=== PATIENT | male | born 1985 | race Caucasian/White ===

== ENCOUNTER 2021-06-20 18:09 | Emergency (ER) | payer BC, SELFPAY | END 2021-06-20 19:59 | disposition left against medical advice (07) | PROVIDERS: Emergency Provider Emergency Medicine; PCP Nurse Practitioner Family | DX: R11.2 Nausea with vomiting, unspecified (principal) ==

== ENCOUNTER 2024-04-17 07:35 | Emergency (ER) | payer OTHER, SELFPAY ==
--- NOTE | ~2024-04-17 | CT_ITS ---
EXAMINATION: CT SHOULDER WITHOUT CONTRAST, LEFT CLINICAL INFORMATION: Hyperextension. Unable to abduct. Pain. COMPARISON: Left shoulder radiographs dated 04/17/2024. TECHNIQUE: Contiguous axial CT images of the left shoulder were obtained without contrast. Multiplanar reformats were provided and reviewed. This CT examination was performed using dose optimization techniques as appropriate, variously including the following: *Automated exposure control *Adjustment of mA and/or kV according to patient size (this includes techniques or standardized protocols for targeted exams where dose is matched to indication/reason for exam; i.e. extremities or head) *Use of iterative reconstruction technique. DOSE: 530 mGy-cm FINDINGS: Mildly displaced fracture along the anteroinferior aspect of the glenoid with the fracture fragment measuring up to 2.2 x 1.0 x 1.0 cm (CC x AP x ML). The fracture contacts the periphery of the glenoid articular surface with the largest fracture gap anteriorly measuring up to 0.4 cm. 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 No significant cortical depression or large Hill-Sachs deformity identified. The bony Bankart lesion indicates possible prior anteroinferior humeral head dislocation. Humeral head currently well seated within the glenoid. No joint space narrowing or marginal osteophytes. No concerning lytic or blastic osseous lesion. Moderate glenohumeral joint effusion. No soft tissue mass or fluid collection. No axillary lymphadenopathy. The visualized left lung is clear. Grossly intact rotator cuff tendons; however, evaluation is significantly limited on CT examination. CT/CT shoulder LT wo IV con IMPRESSION: 1. Mildly displaced fracture along the anteroinferior aspect of the glenoid with the fracture fragment measuring up to 2.2 cm. The fracture contacts the periphery of the glenoid articular surface with the largest fracture gap measuring up to 0.4 cm. 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 No significant cortical depression or large Hill-Sachs deformity identified. This likely indicates prior anteroinferior humeral head dislocation. Humeral head currently well seated within the glenoid. 2. Moderate glenohumeral joint effusion.
--- NOTE | ~2024-04-17 | XR_ITS ---
EXAMINATION: XR SHOULDER, LEFT CLINICAL INFORMATION: Fall onto outstretched shoulder COMPARISON: None available. TECHNIQUE: Four views of the left shoulder. FINDINGS: The bones and soft tissues are normal. No fracture. Glenohumeral and acromioclavicular alignment is anatomic with normal joint space. No abnormal soft tissue calcifications. XR/XR shoulder LT min 2V IMPRESSION: Normal left shoulder.
[2024-04-17 07:39] VITALS: BP 141/84; PULSE 69; RESP 16; TEMP 36.2; O2SAT 98; BMI 28.0
--- NOTE | 2024-04-17 07:48 | ED.EXTPRO ---
HPI - Extremity Problem General Chief complaint: Extremity Injury, Upper Stated complaint: l shoulder pain Time Seen by Provider: 04/17/24 07:48 Source: patient Mode of arrival: ambulatory Limitations: no limitations History of Present Illness ED Provider: TATE YOUNG PA-C HPI Narrative: 38-year-old male with past medical history significant for anxiety presents to the emergency department today for evaluation of left shoulder pain since yesterday. Patient reports that while playing baseball yesterday, he dove for the ball with his left arm outstretched, causing it to hyperextend on landing. Reports hearing a weird sound . Denies head strike or LOC. Not on anticoagulation. Since this time he has been unable to lift his left arm secondary to pain. Denies pain when arm is at rest. He has been using heat at home without relief. Also took Tylenol last night with minimal relief. Denies numbness/tingling/weakness of the LUE, fever/chills. Related Data Previous Rx's ?Medication ?Instructions ?Recorded ondansetron HCl 8 mg tablet 8 mg PO Q12H PRN nausea and 04/18/23 vomiting #14 tabs sumatriptan succinate 50 mg tablet 50 mg PO Q2-4H PRN migraine 04/18/23 headache #20 tabs citalopram 20 mg tablet 20 mg PO DAILY #90 tabs 09/29/23 lidocaine 5 % topical patch 1 patch topical DAILY #15 ea 04/17/24 (Lidoderm) naproxen 500 mg tablet 500 mg PO Q8-12H PRN pain (scale 04/17/24 score 1-3) #20 tabs Allergies Allergy/AdvReac Type Severity Reaction Status Date / Time No Known Allergies Allergy Verified 04/17/24 07:41 Review of Systems Review of Systems: Constitutional: No fever, chills, fatigue, night sweats, weight changes ENT/Mouth: No ear pain, hearing loss, nasal congestion, sinus pain, rhinorrhea, sore throat Eyes: No eye pain, swelling, redness, vision changes, discharge Cardio: No chest pain, palpitations, LAMAS, orthopnea, peripheral edema Pulm: No SOB, cough, sputum, wheezing, dyspnea, hemoptysis GI: No nausea, vomiting, hematemesis, abdominal pain, diarrhea, constipation, hematochezia, melena : No irregular bleeding, dysuria, frequency, urgency, hesitancy, hematuria, flank pain, urinary flow changes, urinary incontinence or retention MSK: No back pain, neck pain, joint pain, myalgias, +left shoulder pain Skin: No lesions, rashes Neuro: No weakness, numbness, paresthesias, LOC, dizziness, headache Psych: No anxiety/panic, depression, SI/HI, AH/VH All other systems reviewed and are negative. [facility] Past Medical History Attestation statement: The following information was validated with the patient. Source: old records reviewed and nursing notes reviewed Medical History Anxiety Family History Family History Mother Mental health disorder Social History Social History Housing: House Patient Tobacco Use Status: Never used Tobacco e-Cigarette/Vaping Use: Currently Using service: No Current occupational status: employed Cognitive needs: No Hearing needs: No Vision needs: Yes Physical Exam Vital Signs: Vital Signs: Last Vital Signs Temp 97.2 F 04/17/24 07:39 Pulse 69 04/17/24 07:39 Resp 16 04/17/24 07:39 BP 141/84 H 04/17/24 07:39 Pulse Ox 98 04/17/24 07:39 O2 Del Method Room Air 04/17/24 07:39 BMI result Body Mass Index 28.0 Patient hypertensive, vitals otherwise WNL Const: General: cooperative, healthy appearing, comfortable and no acute distress Orientation/consciousness: patient oriented x3 Limitations: no limitations HEENT: Head: Yes normal to inspection, Yes No palpable skull fracture present, Yes normocephalic and Yes atraumatic Eyes: General: appearance normal, both eyes and all related structures Pupils: Equal, round and reactive pupils present Neck: Neck: Yes normal visual inspection Chest: Chest palpation & inspection: normal inspection of the chest Resp: Effort & Inspection: normal respiratory effort and able to speak in complete sentences Cardio: Rate: regular rate Rhythm: regular rhythm Back/Spine/Pelvis: Other: No midline spinous tenderness or step off deformity. No paraspinal muscle tenderness. Skin: General skin exam: no rashes or lesions noted Neuro: Other: Sensation intact to light touch.? Neurovascular intact distally.? General: patient oriented x3 Cranial nerves: Yes Equal, round and reactive pupils present Extrem: Other: + left shoulder without noted deformity or overlying skin changes. limited ROM with abduction. pain elicited with abduction against resistance. No tenderness to palpation of the left shoulder. No palpable deformity, warmth, crepitus, fluctuance. Winch Derrick Operator strength intact. 2+ radial/ulnar pulse intact. Course Course Course Narrative: 1117-- x-ray left shoulder unremarkable. No acute fracture noted. High suspicion for traumatic injury so CT scan was obtained. CT left shoulder showing mildly displaced fracture along anterior inferior aspect of the glenoid with the fracture fragment measuring up to 2.2 cm, contacting the periphery of the glenoid articular surface with the largest fracture gap measuring up to 0.4 cm. 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 There is no significant cortical depression or large Hill-Sachs deformity identified. This may indicate prior and heroin inferior humeral head dislocation however humeral head is currently well seated within the glenoid. There is also moderate glenohumeral joint effusion. > findings are consistent with traumatic fracture likely secondary to rotator cuff injury. I did discuss these findings with patient. Patient placed in sling for immobilization. Will send naproxen and lidocaine patches to pharmacy. He tells me that his has already made him in an appointment with orthopedics outpatient for tomorrow. I advised him to keep this appointment for follow-up. Patient has remained stable throughout ED visit today. Discussed worrisome signs and symptoms and when to return to the ED. All questions answered at this time. Patient is agreeable with disposition and stable for discharge. Medical Decision Making Medical Decision Making [facility] Narrative: 38-year-old male with past medical history significant for anxiety presents to the emergency department today for evaluation of left shoulder pain since yesterday. Patient is slightly hypertensive, vitals otherwise WNL. On exam of LUE, left shoulder without noted deformity or overlying skin changes. limited ROM with abduction. pain elicited with abduction against resistance. No tenderness to palpation of the left shoulder. No palpable deformity, warmth, crepitus, fluctuance. Winch Derrick Operator strength intact. 2+ radial/ulnar pulse intact. Differential diagnosis includes rotator cuff injury, msk sprain/ strain, fracture. lower suspicion for dislocation. Unlikely neurovascular compromise, compartment syndrome, threat to limb. Plan for x-ray, pain control, re-evaluation. Differential Diagnosis Differential Diagnoses: The differential diagnosis associated with the presentation includes as above Admission/Observation Not indicated. Independent Interpretation I performed an independent interpretation of an: Plain X-Ray and CT Scan Interpretation: XR left shoulder without acute fracture, agree with radiologist's interpretation. CT left shoulder showing glenoid fracture, agree with radiologist's interpretation. Radiology Impression Discussion of test interpretation with radiology: I have reviewed the radiologist's reading. Radiologist Impression: EXAMINATION: XR SHOULDER, LEFT CLINICAL INFORMATION: Fall onto outstretched shoulder COMPARISON: None available. TECHNIQUE: Four views of the left shoulder. FINDINGS: The bones and soft tissues are normal. No fracture. Glenohumeral and acromioclavicular alignment is anatomic with normal joint space. No abnormal soft tissue calcifications. XR/XR shoulder LT min 2V IMPRESSION: Normal left shoulder. EXAMINATION: CT SHOULDER WITHOUT CONTRAST, LEFT CLINICAL INFORMATION: Hyperextension. Unable to abduct. Pain. COMPARISON: Left shoulder radiographs dated 04/17/2024. TECHNIQUE: Contiguous axial CT images of the left shoulder were obtained without contrast. Multiplanar reformats were provided and reviewed. This CT examination was performed using dose optimization techniques as appropriate, variously including the following: *Automated exposure control *Adjustment of mA and/or kV according to patient size (this includes techniques or standardized protocols for targeted exams where dose is matched to indication/reason for exam; i.e. extremities or head) *Use of iterative reconstruction technique. DOSE: 530 mGy-cm FINDINGS: Mildly displaced fracture along the anteroinferior aspect of the glenoid with the fracture fragment measuring up to 2.2 x 1.0 x 1.0 cm (CC x AP x ML). The fracture contacts the periphery of the glenoid articular surface with the largest fracture gap anteriorly measuring up to 0.4 cm. 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 No significant cortical depression or large Hill-Sachs deformity identified. The bony Bankart lesion indicates possible prior anteroinferior humeral head dislocation. Humeral head currently well seated within the glenoid. No joint space narrowing or marginal osteophytes. No concerning lytic or blastic osseous lesion. Moderate glenohumeral joint effusion. No soft tissue mass or fluid collection. No axillary lymphadenopathy. The visualized left lung is clear. Grossly intact rotator cuff tendons; however, evaluation is significantly limited on CT examination. CT/CT shoulder LT wo IV con IMPRESSION: 1. Mildly displaced fracture along the anteroinferior aspect of the glenoid with the fracture fragment measuring up to 2.2 cm. The fracture contacts the periphery of the glenoid articular surface with the largest fracture gap measuring up to 0.4 cm. 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 No significant cortical depression or large Hill-Sachs deformity identified. This likely indicates prior anteroinferior humeral head dislocation. Humeral head currently well seated within the glenoid. 2. Moderate glenohumeral joint effusion. External Record Review External record reviewed: Inpatient record Prescription Management I considered prescription management with: Pain Medication (Naproxen) and Other (Lidocaine patch) Social Determinants Patient?s care significantly limited by Social Determinants of Health including: Other Social Determinant of Health Procedures Orthopedic Splinting/Casting Injury #1: Side: left Upper Extremity Injury Location: shoulder Upper Extremity Immobilizer: sling/shoulder immobilizer Critical Care Time Critical Care Time Critical Care Time: No Discharge Plan Discharge Clinical Impression: Injury of left rotator cuff Glenoid fracture of shoulder Qualifiers: Encounter type: initial encounter Fracture type: closed Laterality: left Qualified Code(s): S42.142A - Displaced fracture of glenoid cavity of scapula, left shoulder, initial encounter for closed fracture Patient Disposition: Home, Self-Care Instructions: Muscle Strain (ED), Rotator Cuff Injury (ED), How to Use a Sling (ED), Rotator Cuff Injury Exercises (DC) Additional Instructions: The xray of your left shoulder is normal. As discussed, the CT scan of your left shoulder shows: CT shoulder LT wo IV con IMPRESSION: 1. Mildly displaced fracture along the anteroinferior aspect of the glenoid with the fracture fragment measuring up to 2.2 cm. The fracture contacts the periphery of the glenoid articular surface with the largest fracture gap measuring up to 0.4 cm. 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 No significant cortical depression or large Hill-Sachs deformity identified. This likely indicates prior anteroinferior humeral head dislocation. Humeral head currently well seated within the glenoid. 2. Moderate glenohumeral joint effusion. You were provided with a shoulder sling to help immobilize the shoulder. Please follow up with orthopedics outpatient this week. You have been provided with their contact information. Please call them to make an appointment. They will not call you. Naproxen as an anti-inflammatory that has been sent to your pharmacy for you to take for pain/discomfort. Do not take this with other NSAIDs such as ibuprofen as this may cause increased risk of GI bleeding. Lidocaine patches have been sent to your pharmacy. You may apply these to painful areas. Return with new or worsening symptoms. In the case of an emergency call 911. [facility] [phone] [place] [address], [address] [place] [address] Prescriptions: New naproxen 500 mg tablet 500 mg PO Q8-12H PRN (Reason: pain (scale score 1-3)) Qty: 20 0RF lidocaine [Lidoderm] 5 % adhesive patch,medicated 1 patch topical DAILY Qty: 15 0RF Rx Instructions: leave on most painful area for up to 12 hrs No Action sumatriptan succinate 50 mg tablet 50 mg PO Q2-4H PRN (Reason: migraine headache) Qty: 20 0RF Rx Instructions: do not exceed 4 doses per 24 hrs ondansetron HCl 8 mg tablet 8 mg PO Q12H PRN (Reason: nausea and vomiting) Qty: 14 0RF citalopram 20 mg tablet 20 mg PO DAILY Qty: 90 2RF Referrals: [facility] [Provider Group] Alessandro De Luna, MEDICAL PHYSIOLOGIST-BC [Primary Care Provider] - Stand Alone Forms: Work/School Release Print Language: Welsh
[2024-04-17 11:25] VITALS: BP 125/79; PULSE 60; RESP 20; TEMP 36.2; O2SAT 98
== END 2024-04-17 11:29 | disposition home or self-care (01) ==
PROVIDERS: Emergency Provider Emergency Medicine; PCP Nurse Practitioner Family
DX: S42.142A Displaced fracture of glenoid cavity of scapula, left shoulder, initial encounter for closed fracture (principal); M79.602 Pain in left arm; X58.XXXA Exposure to other specified factors, initial encounter; Y93.64 Activity, baseball; Y92.320 Baseball field as the place of occurrence of the external cause; Y99.8 Other external cause status
CPT/HCPCS: 29105; 73030; 73200; 99282; 99283; 99284

== ENCOUNTER 2024-04-18 08:23 | Outpatient (AMB) | payer OTHER, SELFPAY ==
[2024-04-18 08:27] VITALS: BMI 28.0
--- NOTE | 2024-04-18 08:27 | MHC.OFFVIS ---
Vital Signs 04/18/24 08:27 Height 6 ft 5 in Weight 236 lb BMI 28.0 Intake Visit Reasons: ED follow up, [facility]ar shealdr inj DOI 04/16/24 Intake Note: Boubacar is a 38 year old right and dominant male who presents today for an ED follow up after sustaining an injury to the left shoulder DOI 04/16/24. Patient reports that while playing baseball yesterday, he dove for the ball with his left arm outstretched, causing it to hyperextend on landing. Reports hearing a tearing sound.Currently he complains of soreness all the time, worsened at night. Pain is felt in the posterioraspect of the shoulder with shooting pain down the arm. Denies numbness and tingling. He takes Tylenol with little relief. Allergies No Known Allergies Allergy (Verified 04/17/24 07:41) Medication List - Last Reconciled 04/18/24 by Juvenal Conde PA-C citalopram 20 mg PO DAILY lidocaine 5% (Lidoderm) 1 patch topical DAILY naproxen 500 mg PO Q8-12H PRN HPI HPI ED follow up, [facility]ar shealdr inj DOI 04/16/24: Details: 38-year-old right hand dominant male who presents to the office today for an ED follow-up of left shoulder injury, 04/16/24. He reports he was playing basketball yesterday and dove for the ball with his left arm outstretched causing it to hyperextend on landing with a tearing sound. He currently states he has constant soreness and pain at the posterior aspect of his shoulder with a shooting pain down the arm. He denies any numbness or tingling. He finds mild relief with Tylenol. He wears a sling however this causes him discomfort. [facility] Medical History Anxiety Family History Mother Mental health disorder Social History Housing: House Patient Tobacco Use Status: Never used Tobacco e-Cigarette/Vaping Use: Currently Using service: No Current occupational status: employed Cognitive needs: No Hearing needs: No Vision needs: Yes Review of Systems Const All systems reviewed & are unremarkable except as noted in HPI and below Physical Exam Vital Signs: BMI result Body Mass Index 28.0 Const General: cooperative, healthy appearing, comfortable, no acute distress, well developed and alert Orientation/consciousness: patient oriented x3 HEENT Head: Yes normal to inspection, Yes normocephalic and Yes atraumatic Eyes General: appearance normal, both eyes and all related structures Resp Effort & Inspection: normal respiratory effort and able to speak in complete sentences Cardio Rate: regular rate Peripheral pulses: Peripheral pulses 2+ throughout GI Palpation (GI): Soft to palpation Skin Lesions: no lesions Rashes: no rashes Neuro General: patient oriented x3 Extrem Other: Left shoulder: Normal to inspection. Tenderness over the bicipital groove and along the deltoid region of the shoulder. Forward flexion to 175, external rotation to 90, internal rotation to S1. 5/5 RTC strength. Negative Basurto and cross body abduction. NVI. Results Reviewed Results Reviewed: XR shoulder LT min 2V 04/17/24 IMPRESSION: Normal left shoulder. CT shoulder LT wo IV con 04/17/24 IMPRESSION: 1. Mildly displaced fracture along the anteroinferior aspect of the glenoid with the fracture fragment measuring up to 2.2 cm. The fracture contacts the periphery of the glenoid articular surface with the largest fracture gap measuring up to 0.4 cm. 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 No significant cortical depression or large Hill-Sachs deformity identified. This likely indicates prior anteroinferior humeral head dislocation. Humeral head currently well seated within the glenoid. 2. Moderate glenohumeral joint effusion. Assessment & Plan Assessment & Plan (1) Bankart lesion of left shoulder: Code(s): S43.492A - Other sprain of left shoulder joint, initial encounter Category: Medical Plan Patient will continue with the sling for comfort. He will remove the sling for ROM of elbow, pendulum exercises and I explained he can perform activities , but nothing behind the coronal plane of his body. He will avoid any type of lifting, pushing, pulling, or carrying on his LUE. I would like to see him back in 2 weeks for a follow-up visit to further evaluate the extent of his injury to determine if he would require any other imaging or potentially discuss surgical intervention given the likelihood of instability on his shoulder. He will remain out of work untill his follow-up appointment in [address] Gonzales. Patient Instructions: Scribed for Juvenal Conde PA-C, by Dimas Crystal medical administrative assistant, on 04/18/2024 at 8:30 AM EST.? I, Juvenal Conde PA-C, have personally reviewed and agree with the information entered by the scribe. Coding Level of Care Code New Pt Level 3 (87273) Diagnoses Bankart lesion of left shoulder S43.492A
== END 2024-04-18 09:23 | disposition home or self-care (01) ==
PROVIDERS: PCP Nurse Practitioner Family; Visit Provider Physician Assistant
DX: S43.492A Other sprain of left shoulder joint, initial encounter (principal)
CPT/HCPCS: 99203

== ENCOUNTER → 2024-04-18 08:23 | Outpatient (BNVA) | payer OTHER, SELFPAY | PROVIDERS: PCP Nurse Practitioner Family; Visit Provider Physician Assistant ==

== ENCOUNTER 2024-05-04 10:22 | Outpatient (AMB) | payer OTHER, SELFPAY ==
--- NOTE | 2024-05-04 10:38 | A.OFFVIS_ITS ---
Intake Visit Reasons: ov- L shldr inj DOI 04/16/24 Intake Note: Boubacar is a 38 year old right and dominant male who presents today for a follow up after sustaining an injury to the left shoulder, DOI 04/16/24. Patient reports improvement in his pain and ROM. States having discomfort with some arm movements. Allergies No Known Allergies Allergy (Verified 05/04/24 10:44) Medication List - Last Reconciled 05/08/24 by Juvenal Conde PA-C citalopram 20 mg PO DAILY lidocaine 5% (Lidoderm) 1 patch topical DAILY naproxen 500 mg PO Q8-12H PRN HPI HPI ov- L shldr inj DOI 04/16/24: Details: Cedric is a 38-year-old right-hand dominant male who presents today for a follow-up after sustaining an injury to the left shoulder, DOI 04/16/24. He reports significant improvement in his pain and ROM. He notices certain movements caused him discomfort such as ?reaching behind his back.? He reports difficulty in lifting items secondary to pain. [facility] Medical History Anxiety Family History Mother Mental health disorder Social History Housing: House Patient Tobacco Use Status: Never used Tobacco e-Cigarette/Vaping Use: Currently Using service: No Current occupational status: employed Cognitive needs: No Hearing needs: No Vision needs: Yes Review of Systems Const All systems reviewed & are unremarkable except as noted in HPI and below Physical Exam Const General: cooperative, healthy appearing, comfortable and no acute distress Orientation/consciousness: patient oriented x3 HEENT Head: Yes normal to inspection, Yes normocephalic and Yes atraumatic Eyes General: appearance normal, both eyes and all related structures Neck Neck: Yes normal visual inspection and Yes no JVD Chest Chest palpation & inspection: normal inspection of the chest Resp Effort & Inspection: normal respiratory effort Auscultation: clear to auscultation bilaterally, crackles (no), rales (no), rhonchi (no) and wheezes (no) Cardio Jugular venous distension: no JVD Rate: regular rate Rhythm: regular rhythm Heart sounds: S1 normal heart sound present, S2 normal heart sound present, Murmur heart sound present (no) and Rub heart sound present (no) Peripheral pulses: Peripheral pulses 2+ throughout GI Palpation (GI): Soft to palpation Skin Lesions: no lesions Rashes: no rashes Neuro General: patient oriented x3 Extrem Other: Left shoulder: Normal to inspection. Tenderness over the bicipital groove and along the deltoid region of the shoulder. Forward flexion to 175, external rotation to 90, internal rotation to S1. He has mild discomfort with apprehension test. NVI. General: Yes normal to inspection, Yes no pedal edema and Yes no calf tenderness Psych Appearance: grossly normal Mental Status: mental status grossly normal Speech and movement: Normal speech and movement present Assessment & Plan Assessment & Plan (1) Bankart lesion of left shoulder: Code(s): S43.492A - Other sprain of left shoulder joint, initial encounter Category: Medical Plan I discussed the case with Dr. Gonzales in the office today. At this time, we will proceed with physical therapy of his left shoulder to work on stabilization and rotator cuff strengthening. Given his findings on his CT scan it is questionable whether or not he will develop chronic sensation of instability. Therefore, I will see him back in 6 to 8 weeks for reassessment and if he continues to do well, we can hopefully advances activities. However, if he develops recurrent sensations of instability, we may need to discuss possible surgical intervention. He was given a work note to return on May 08. Advised him to no lifting, pushing, pulling or carrying greater than 5 to 10 pounds and he will see me back in 6 to 8 weeks or sooner if needed. Orders: Orders PT Evaluation and Treatment 05/04/24 S43.492A - Other sprain of left shoulder joint, initial encounter Patient Instructions: Scribed for Juvenal Conde PA-C, by manasa Abad scribe, on 05/04/2024 at 10:30 AM ARNULFO. Juvenal Beckman PA-C, have personally reviewed and agree with the information entered by the scribe. Coding Level of Care Code Global (75473) Diagnoses Bankart lesion of left shoulder S43.492A
== END 2024-05-04 11:08 | disposition home or self-care (01) ==
PROVIDERS: PCP Nurse Practitioner Family; Visit Provider Physician Assistant
DX: S43.492A Other sprain of left shoulder joint, initial encounter (principal)
CPT/HCPCS: 99213

== ENCOUNTER → 2024-05-04 10:22 | Outpatient (BNVA) | payer OTHER, SELFPAY | PROVIDERS: PCP Nurse Practitioner Family; Visit Provider Physician Assistant ==

== ENCOUNTER 2025-03-01 10:52 | Outpatient (AMB) | payer OTHER, SELFPAY ==
[2025-03-01 10:53] VITALS: BP 122/70; PULSE 68; RESP 14; TEMP 36.7; O2SAT 97; BMI 28.2
--- NOTE | 2025-03-01 10:53 | A.OFFPC_ITS ---
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 Accompanied by: Self / Same As Patient Allergies No Known Allergies Allergy (Verified 03/01/25 10:53) Medication List - Last Reconciled 03/01/25 by ERNIE Moser citalopram 20 mg PO DAILY Tobacco use date assessed: 03/01/25 Dental Screening Dental Screen Date: 03/01/25 Did you have a dental visit in the last 12 months?: Yes Did you have a dental problem in the last 6 months where you did not have access to dental care?: No Was dental information given to patient?: Patient has dentist HPI PE HPI Details History of Present Illness The patient is a 39-year-old male presenting with a primary reason for visit of a physical exam. He reports feeling slightly fatigued, though no specific onset or contributing factors were mentioned. Additionally, he notes experiencing snoring, but did not provide details regarding its onset or any associated symptoms. The patient is currently on citalopram and reports doing well with this medication. He denies experiencing any symptoms such as chest pain, shortness of breath, abdominal pain, blood in stool, constipation, diarrhea, urinary issues, or any suicidal or homicidal ideation. Health Maintenance - Discussion for a possible sleep study for snoring - Continuation of citalopram for mental health management Social History Review of Systems - Respiratory: Denies chest pain, shortn ess of breath - Gastrointestinal: Denies abdominal sammi n, blood in stool, constipation, diarrhea - Genitourinary: Denies urinary issues - Neurological/Psychiatric: Denies suici aleta ideation, homicidal ideation; Reports doing well on citalopram - General: Reports fatigue, snoring Physical Exam General: Cooperative, healthy appearing, comfortable, no acute distress and well developed Orientation: Patient oriented x3 Limitations: No limitations Head: Normal to inspection Ears: Hearing grossly normal bilaterally Nose: Normal external nose present Face and sinus: Normal facial exam Eyes: Appearance normal, both eyes and all related structures Neck: Normal visual inspection and Yes full ROM Respiratory: Normal respiratory effort and able to speak in complete sentences. Clear to auscultation bilaterally Cardiovascular: Regular rate and rhythm. Normal S1 and S2 GI: Normal to inspection. Soft to palpation and nontender Skin: No rashes or lesions noted Neuro: Patient oriented x3 Extremities: Normal to inspection Results Plan The patient reports fatigue and snoring. We will continue his citalopram, which he finds effective. For the snoring, a referral to the sleep medicine team for a potential sleep study will be arranged to explore possible sleep disorders. We will review laboratory results to investigate any contributing factors to his fatigue. Discussion Notes During the consultation, I discussed with the patient the management of his current symptoms. We agreed to continue the current citalopram regimen as he reports it is effective. I explained the potential need for a sleep study to better understand his snoring and any associated sleep disturbances. The patient was informed about the importance of reviewing laboratory results that could provide insights into his fatigue. We discussed the benefits of these investigations and the importance of continuing to monitor his symptoms. Patient Instructions - Continue taking citalopram as prescrib ed. - Follow up with the sleep medicine team for a possible sleep study. - Await further review of lab results to address fatigue. - Report any new or worsening symptoms p romptly. [facility] Medical History Anxiety Family History Mother Mental health disorder Social History Housing: House Alcohol intake: current Alcohol intake frequency: does not drink Patient Tobacco Use Status: Former Tobacco user Tobacco use type: Cigarette e-Cigarette/Vaping Use: Currently Using service: No Current occupational status: employed Cognitive needs: No Hearing needs: No Vision needs: Yes (rx glasses) Questionnaire PHQ-9 Over the last 2 weeks, how often have you been bothered by any of the following problems? 1. Little interest or pleasure in doing things: not at all 2. Feeling down, depressed, or hopeless: not at all 3. Trouble falling or staying asleep, or sleeping too much: not at all 4. Feeling tired or having little energy: not at all 5. Poor appetite or overeating: not at all 6. Feeling bad about yourself - or that you are a failure or have let yourself or your family down: not at all 7. Trouble concentrating on things, such as reading the newspaper or watching television: not at all 8. Moving or speaking so slowly that other people could have noticed. Or the opposite - being so fidgety or restless that you have been moving around a lot more than usual: not at all 9. Thoughts that you would be better off or of hurting yourself in some way: not at all Total score: 0 Depression Screening Interpretation: Negative Depression Screening Done: Yes 36887 - PHQ-9 Billing: Yes Source: Developed by Drs. Drew Mao, Jennie Woo, Keaton Rosales and colleagues, with an educational anna from [employer]. Thrive Questionnaire Date Thrive assessed: 03/01/25 I am a: Patient What is your living situation today?: I have a steady place to live Within the past 12 months, did the food you bought not last and you didn't have the money to get more?: Never true Within the past 12 months, did you worry whether your food would run out before you got money to buy more?: Never true Do you have trouble paying for medicines?: No Do you have trouble getting transportation to medical appointments?: No Do you have trouble paying your heating and electricity bill?: No Do you have trouble taking care of your child, family member or friend?: No Do you have trouble with day-to-day activities such as bathing, preparing meals, shopping, managing finances, etc.?: No Are you currently unemployed and looking for a job?: No Are you interested in more education?: No Please select the resources that you would like help with: None Currently or been in a relationship where the following occur: No concerns reported THRIVE Score: 0 AUDIT C Alcohol Use Questionnaire (AUDIT-C) 1. How often do you have a drink containing alcohol?: Never 3. How often do you have six or more drinks on one occasion?: Never Total Score: 0 KRISTA-7 AMB Questionnaire KRISTA-7 Date KRISTA - 7 assessed: 03/01/25 Feeling nervous, anxious, or on edge: 0 = Not at all Not being able to stop or control worryin = Not at all Worrying too much about different things: 0 = Not at all Trouble relaxin = Not at all Being so restless that it is hard to sit still: 0 = Not at all Becoming easily annoyed or irritable: 0 = Not at all Feeling afraid as if something awful might happen: 0 = Not at all Total KRISTA-7 score (0-4 normal; 5-9 mild; 10-14 moderate; 15-21 severe): 0 Source: Developed by Drs. Drew Mao, Jennie Woo, Keaton Rosales and colleagues, with an educational anna from [employer]. Physical exam (Primary Care) Vital Signs: Last Vital Signs Temp 98.1 F 03/01/25 10:53 Pulse 68 03/01/25 10:53 Resp 14 03/01/25 10:53 BP 122/70 03/01/25 10:53 Pulse Ox 97 03/01/25 10:53 Oxygen Delivery Method Room Air 03/01/25 10:53 BMI result Body Mass Index 28.2 Tobacco/Smoking Status: Tobacco use Status Tobacco use date assessed 03/01/25 03/01/25 11:00 Patient Tobacco Use Status Former Tobacco user 03/01/25 11:00 Tobacco use type Cigarette 03/01/25 11:00 e-Cigarette/Vaping Use Currently Using 03/01/25 11:00 PHQ-9: PHQ-9 Score PHQ-9: Total score 0 03/01/25 11:00 Depression Screening Interpretation: Negative Thrive Assessment: Date of Thrive Assessment Date Thrive assessed 03/01/25 03/01/25 11:00 Currently or been in a relationship where the following occur: No concerns reported Coding Level of Care Code Est Pt Prev Care 18-39y(36460) Diagnoses Physical exam Z00.00 Snores R06.83 Fatigue R53.83 Additional Codes PHQ-9 - 32329 - PHQ-9 Billing: Yes ([id number]) Assessment & Plan Assessment & Plan (1) Physical exam: Code(s): Z00.00 - Encounter for general adult medical examination without abnormal findings Category: Medical (2) Snores: Code(s): R06.83 - Snoring Category: Medical (3) Fatigue: Code(s): R53.83 - Other fatigue Category: Medical Plan . Orders: Orders Complete Blood Count Auto Diff Today Z00.00 - Encounter for general adult medical examination without abnormal findings TSH reflex Free T4 Today Z00.00 - Encounter for general adult medical examination without abnormal findings UA CC w/rflx Micro + Cult Today Z00.00 - Encounter for general adult medical examination without abnormal findings Ferritin Today R53.83 - Other fatigue Vitamin B12 and Folate Today R53.83 - Other fatigue Lyme IgG/IgM w/reflex to WB Today R53.83 - Other fatigue Comprehensive [place]. Panel Fast Today Z00.00 - Encounter for general adult medical examination without abnormal findings Lipid Panel Today Z00.00 - Encounter for general adult medical examination without abnormal findings Testosterone, Total Today R53.83 - Other fatigue IRON PROFILE Today R53.83 - Other fatigue Tick-borne Disease Molecular Today R53.83 - Other fatigue Referrals Sleep Medicine Referral R06.83 - Snoring
--- OUTSIDE RECORDS SUMMARY | 2025-03-01 11:21 | XMS_ITS | Data Portability ---
Author Organization [facility], [address] Address [address] [place] [address] Assessment No assessment recorded. Plan of Treatment Reminders Order Date Submit Date Provider Last Modified By Organization Details Last Modified Time Details Appointments None recorded. Lab rapid flu (A+B) 2023 024 [email or web address] 5 [facility] [address], [address] [place], [address], 4 10:36:23 SARS CoV 2 (COVID-19) Ag, QL, IA, upper respiratory specimen 2023 024 [email or web address] 5 _[facility] [address], [address] [place], [address], 4 10:36:25 Referral None recorded. Procedures None recorded. Surgeries None recorded. Imaging None recorded. Medication Orders acetaminoph en 325 mg tablet 2022 023 [email or web address] Not available 4 09:16:12 amoxicillin 875 mg tablet 2022 023 [email or web address] [id number], [address] [facility] [place], [address], 4 09:16:05 Patient TargetsNo targets recorded. Patient Instructions Encounter Date Encounter Id Patient Instructions Last Modified By Organization Details Last Modified Time 12/19/2022 [id number] tooth and gum pain: care instructions [email or web address] Not available 12/19/2022 08:48:52 10/05/2023 [id number] headache: care instructions Not available 10/05/2023 10:36:21 coronavirus (covid-19): care instructions [email or web address] Not available 10/05/2023 10:36:21 10 things to do when you have covid-19 [email or web address] Not available 10/05/2023 10:36:21 Since your home covid test was positive, your [facility] and your symptoms are consistent with acute covid 19 - even though your test was negative here today you likely have covid 19. Rest. Drink plenty of fluids. Nutritional supplements that may benefit you include: Vitamin D3 5,000 IU daily Vitamin C 1,000 mg twice daily Zinc 50mg daily Elderberry Curcumin Melatonin at bedtime Gargling with Listerine and using saline, Xlear or 1% betadine nasal spray can decrease viral replication in your nose and mouth. See printed instructions. Follow-up with your doctor if no improvement in a few days. Seek Emergency Medical evaluation for any worsening symptoms, particularly for high fever, shaking chills, severe headache, rash, stiff neck, chest pain, shortness of breath. The CDC recommends quarantining at home for 5 days from onset of symptoms. If on day #6 you feel well you may go out into public spaces but need to wear a mask for 5 days. [email or web address] Not available 10/05/2023 10:41:14 Reason for Referral None Reported. Results Created Date Observation Date Name Description Value Unit Range Abnormal Flag Note LastModifiedBy Organization Detail LastModifiedTime 10/05/19 24 10/05/2023 SARS CoV 2 (COVI D-19) Ag, QL, IA, upper respi rator y speci men Unknown Analyte negati ve Not Available [address] [place], [address], 10/05/2023 09:28:27 10/05/19 24 10/05/2023 rapid flu (A+B) Unknown Analyte negati ve Not Available [address] [place], [address], 10/05/2023 09:28:20 10/05/19 24 10/05/2023 rapid flu (A+B) Unknown Analyte negati ve Not Available [address] [place], [address], 10/05/2023 09:28:20 Result Notes None recorded. Problems Name Problem SNOMED Code Status Onset Date Resolution Date Notes Provider Name and Address Organization Details Recorded Time Anxiety 04823951 Active 023 [facility] Cel[facility] - [facility] 12/19/2022 08:22:58 Problem Notes None recorded. Medical Equipment None Reported. Allergies No known drug allergies Medications Name Sig Start Date Stop Date Status Note LastModified by Organization Details LastModified Time acetaminophe n 325 mg tablet Take 3 tablets by oral route. 10/05 completed Not Available Not Available Not Available amoxicillin 875 mg tablet TAKE 1 TABLET BY MOUTH EVERY 12 HOURS FOR 10 DAYS 10/05 completed Not Available Not Available Not Available citalopram 20 mg tablet TAKE 1 TABLET BY MOUTH DAILY active Not Available Not Available No t Available amoxicillin 875 mg-potassium clavulanate 125 mg tablet TAKE 1 TABLET BY MOUTH TWICE DAILY FOR 7 DAYS 12/19 completed Not Available Not Available Not Available Vitals Date Recorded Body height Body mass index (BMI) Body weight Oxygen saturation Oxygen saturation in Arterial blood by Pulse oximetry Heart rate Respiratory rate Body temperature Systolic blood pressure Diastolic blood pressure Provider Name and Address Organization Details Last Updated DateTime 4 195.58 cm 29.6 kg/m2 220833. 09 g 95 % 95 % 83 /min 18 /min 98 [degF] 115 mm[Hg] 72 mm[Hg] Pamela POWERS - [facility] 4 09:27:05 Date Recorded Body height Body mass index (BMI) Body weight Respiratory rate Oxygen saturation Oxygen saturation in Arterial blood by Pulse oximetry Heart rate Body temperature Systolic blood pressure Diastolic blood pressure Provider Name and Address Organization Details Last Updated DateTime 3 195.58 cm 29.6 kg/m2 793122. 09 g 18 /min 99 % 99 % 76 /min 98.2 [degF] 130 mm[Hg] 82 mm[Hg] MEHREEN POWERS - [facility] 3 08:24:55 Social History Question Answer Notes LastModified by Organizat [employer] Details LastModified Time Tobacco Smoking Status Former Smoker MEHREEN CLARKGIO Menezes [facility] 12/19/2022 08:23:57 Have You Recently Traveled Abroad? No [email or web address] Information not available 12/19/2022 Sex: Unknown Functional Status Question Answer Note LastModified by Organizat ion Details LastModified Time Do you use any illicit or recreational drugs? No [email or web address] Information not available 12/19/2022 Do you or have you ever used any other forms of tobacco or nicotine? Yes [email or web address] Information not available 12/19/2022 What is your level of alcohol consumption? None [email or web address] Information not available 12/19/2022 Do you or have you ever used e-cigarettes or vape? Current user of electronic cigarettes [email or web address] Information not available 12/19/2022 Mental Status None recorded. Family History Relationship Description Onset Age of this Age Resolved Age Notes LastModified by Organization Details LastModified Time Father No current problems or disability Not available 12/19 08:23:21 Mother No current problems or disability [email or web address] Not available 12/19 08:23:21 Medical History No medical history recorded. Immunizations Vaccine Type Date Status Note Provider Nam e and Address Organization Details Recorded Time MMR 0 completed Eve german PA - [facility] 10/05/2023 09:15:54 MMR 0 completed Eve german PA - [facility] 10/05/2023 09:15:54 COVID-19, mRNA, LNP-S, PF, 100 mcg/0.5mL dose or 50 mcg/0.25mL dose 2 completed Eve german PA - [facility] 10/05/2023 09:15:54 COVID-19, mRNA, LNP-S, PF, 100 mcg/0.5mL dose or 50 mcg/0.25mL dose 2 completed Eve german PA - [facility] 10/05/2023 09:15:54 Tdap 7 completed Eve Lavelle null, PA - [facility] 10/05/2023 09:15:54 DTP 0 completed Eve Lavelle null, PA - [facility] 10/05/2023 09:15:54 DTP 8 completed Eve Lavelle null, PA - [facility] 10/05/2023 09:15:54 DTP 3 completed Eve Lavelle null, PA - [facility] 10/05/2023 09:15:54 DTP 8 completed Eve Lavelle null, PA - [facility] 10/05/2023 09:15:54 DTP 8 completed Eve Lavelle null, PA - [facility] 10/05/2023 09:15:54 OPV 0 completed Eve Lavelle null, PA - [facility] 10/05/2023 09:15:54 OPV 8 completed Eve Lavelle null, PA - [facility] 10/05/2023 09:15:54 OPV 3 completed Eve Lavelle null, PA - [facility] 10/05/2023 09:15:54 OPV 8 completed Eve Lavelle null, PA - [facility] 10/05/2023 09:15:54 Td (adult), 2 Lf tetanus toxoid, preservative free, adsorbed 0 completed Eve Lavelle null, PA - [facility] 10/05/2023 09:15:54 Hep B, adolescent or pediatric 0 completed Eve Lavelle null, PA - [facility] 10/05/2023 09:15:54 Hep B, adolescent or pediatric 0 completed Eve Lavelle null, PA - [facility] 10/05/2023 09:15:54 Hep B, adolescent or pediatric 0 completed Eve Lavelle null, PA - [facility] 10/05/2023 09:15:54 Hib (HbOC) 0 completed Eve Lavelle german PA - [facility] 10/05/2023 09:15:54 meningococcal MCV4P 5 completed Eve Lavelle german, PA - [facility] 10/05/2023 09:15:54 Past Encounters Encounter ID Performer Location Encounter Start Date Encounter Closed Date Diagnosis/Indication Diagnosis SNOMED-CT Code Diagnosis ICD10 Code Diagnosis Note [id number] [facility] [address] [place] [address] 08/04/2016 19:45:42 08/04/2016 20:07:47 [id number] KEIRA BA MD 20[address] [address] [place] [phone] 12/19/2022 08:11:57 12/19/2022 08:49:38 Atypical facial pain 24332373 G50.1 Toothache 94919680 K08.8 9 Dental Care:Gum PainTea Tree Oil Mouthwash- Desert Essence - Tea Tree Oil Mouthwash - Spearmint ( or other available brand at local store) Tooth PainClove Oil For Tooth Pain (ask your pharmacist for this) [id number] [place] [address] [place] [address] 10/05/2023 09:00:43 10/05/2023 10:41:46 Acute COVID-19 7021392512 U07.1 Health Concerns Section Related Observation LastModified by Organization Detai ls LastModified Time None Recorded Concern Status LastModified by Organization Details LastModified Time None Recorded Advance Directives Directive None Recorded Payers Insurance Date Sequence Insurance Name Policy Number Policy Mcghee Covered Member ID Mcghee Member ID Guarantor Name 10/05/2023 1 [facility] [place] [place] Cedric Manning [id number] Cedric Manning 10/05/2023 1 [employer] [id number] Cedric Manning [id number] Cedric Manning 10/05/2023 1 [employer] (PPO) Cedric Manning [id number] Cedric Manning Notes Date Note Type Note Provider Name and Address Organization Details Recorded Time 4 text/html CoughReported bypatient.source of patient informationInformation obtained from patient; Patient arrived at Urgent Care ambulatory Quality:productive cough Severity:mild Duration:constant; 1 days Timing:constant Context:Former smoker. Modifying Factors:None. Associated Symptoms:no fever; no chills; no chest pain; no heartburn; no nausea; no vomiting; no edema; no agitation; no wheezing; no post nasal dripNotes:37 year old male presenting for evaluation of nasal congestion, runny nose, sinus pressure headache, productive cough for one day. A home covid test was positive. No fever, chills, rash, stiff neck, ear pain, chest pain, wheezing, shortness of breath, GI symptoms, sore throat or body aches. Franny Garcia MD [address] [place], [place] [address], [address], PA - [facility] 10/07/2023 12:57:31
== END 2025-03-01 11:38 | disposition home or self-care (01) ==
LOC: HO.HMCC 10:53
PROVIDERS: PCP Nurse Practitioner Family; Visit Provider Nurse Practitioner Family
DX: Z00.00 Encounter for general adult medical examination without abnormal findings (principal); R06.83 Snoring; R53.83 Other fatigue

== ENCOUNTER → 2025-03-01 10:52 | Outpatient (BNVA) | payer OTHER, SELFPAY | PROVIDERS: PCP Nurse Practitioner Family; Visit Provider Nurse Practitioner Family | DX: Z00.00 Encounter for general adult medical examination without abnormal findings (principal); R06.83 Snoring; R53.83 Other fatigue | CPT/HCPCS: 96127 ==

== ENCOUNTER 2025-09-24 08:53 | Outpatient (AMB) | payer OTHER, SELFPAY ==
[2025-09-24 09:06] VITALS: BMI 28.2
--- NOTE | 2025-09-24 09:06 | A.OFFVIS_ITS ---
Vital Signs 09/24/25 09:06 Height 6 ft 5 in Weight 238 lb BMI 28.2 Intake Visit Reasons: [employer]- Lt wrist ganglion cyst Intake Note: Cedric is a 39 year old right hand dominant male who presents today for a New Problem Visit for evaluation of a Left Wrist Ganglion. Patient reports for about a month he has been having a fluctuating bump on the radial aspect of his left wrist. 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 He denies numbness or tingling. Denies previous injuries to the left wrist. He is not taking anything for pain at this time. Allergies No Known Allergies Allergy (Verified 09/24/25 09:06) HPI HPI [employer]- Lt wrist ganglion cyst: Details: Cedric is a 39 year old right hand dominant male who presents today for a New Problem Visit for evaluation of a Left Wrist Ganglion. Patient reports for about a month he has been having a fluctuating bump on the radial aspect of his volar left wrist. Patient reports that it did decrease in size once, however it has been steadily increasing in size since. 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 He denies numbness or tingling. Denies previous injuries to the left wrist. He is not taking anything for pain at this time. [facility] Medical History Anxiety Family History Mother Mental health disorder Social History (Updated 09/24/25 @ 09:09 by Raina Bowers [facility]) Housing: House Alcohol intake: current Alcohol intake frequency: does not drink Patient Tobacco Use Status: Former Tobacco user Tobacco use type: Cigarette e-Cigarette/Vaping Use: Currently Using service: No Current occupational status: employed Current occupation: construction, rt handed Cognitive needs: No Hearing needs: No Vision needs: Yes (rx glasses) Review of Systems Const All systems reviewed & are unremarkable except as noted in HPI and below Physical Exam Vital Signs: BMI result Body Mass Index 28.2 Extrem Other: Patient is alert, oriented, and in no acute distress. Neuro: Normal sensation of the tips of all digits of the left hand at this time Vascular: Cap refill brisk Pain: No tenderness to palpation about the mass noted on volar and radial aspect of the left wrist No discomfort with range of motion of the left wrist ROM: Range of motion of the left hand and wrist full and intact Skin: There was an approximately 1.5-2 cm in diameter subcutaneous mass noted on the volar and radial aspect of the left wrist No lacerations or abrasions. General: No ecchymosis, erythema, or evidence of infection. Flavio's test reveals perfusion of the entire hand with the ulnar artery Psych: Appears grossly normal Affect normal Attitude cooperative Assessment & Plan Assessment & Plan (1) Ganglion cyst of volar aspect of left wrist: Code(s): M67.432 - Ganglion, left wrist Category: Medical Plan 1. Ganglion cyst of volar left wrist I educated the patient about the condition. I discussed both operative and nonoperative treatment options. The risks and benefits of operative treatment were discussed with the patient and the patient wishes to proceed with surgery. These risks include, but are not limited to, risk of damage to blood vessels, nerves, tendons, infection, recurrence, incomplete relief of preoperative symptoms, persistent pain, possible need for further surgery, and the risks associated with regional blocks and/or anesthesia. However, the patient would like to discuss surgery with his family and his job to determine if this is something that is possible for him to undergo at this point. Patient denies diabetes, blood thinners, asthma, heart issues, lung issues, kidney issues, or current smoking. Follow-up when patient makes decision about surgical intervention, sooner with any acute concerns Coding Level of Care Code New Pt Level 4 (75506) Diagnoses Ganglion cyst of volar aspect of left wrist M67.432
== END 2025-09-24 09:20 | disposition home or self-care (01) ==
LOC: HO.HOS 08:54
PROVIDERS: PCP Nurse Practitioner Family
DX: M67.432 Ganglion, left wrist (principal)
CPT/HCPCS: 99204